=== PATIENT | female | born 1960 | race African-American/Black ===

== ENCOUNTER → 2017-03-24 | Emergency (ER) | payer MEDICARE, MEDICAID ==
[~2017-03-24] VITALS: Ht 154.9 cm; Wt 54.4 kg
[~2017-03-24] MED LIST: IBUPROFEN600 MG ORAL; MEDICAL MARIJUANA PO; NORCO 5-325 TA1 EAC1 ORAL; Norco 5mg/325mg tab ORAL ONE; TRAMADOL HCL50 MG PO; VICODIN ES 7.51 EAC1 PO
[2017-03-24 17:23] VITALS: BP 116/79
[2017-03-24 18:48] VITALS: BP 123/78
--- NOTE | 2017-03-24 22:06 | Emergency Room Report ---
History of Present Illness General Chief Complaint: Pain Present Illness [facility] The patient is a 57-year-old female with a stated history of fibromyalgia and arthritis presenting for total body pain. The patient states that she has been taking tramadol for pain prescribed by her pain management doctor but pain has been increasing over the past several days. Pain is described as a 10 out of 10 dull ache to the entire body and is worse with touch. She denies any recent injuries or any known provoking factors. She states that she has an appointment to see her doctor within the next week. She denies any other symptoms including nausea, vomiting, fever, chills, chest pain, shortness of breath Allergies: Coded Allergies: NO KNOWN ALLERGIES (Verified Allergy, Unknown, 03/24/17) Patient History Past Medical History: see triage record Pertinent Family History: none Reviewed Nursing Documentation: PMH: Agreed, PSxH: Agreed Nursing Documentation-PMH Hx Cardiac Problems: No - HEP C Hx Cancer: No Hx Gastrointestinal Problems: No Hx Neurological Problems: No - fybromyalgia Review of Systems All Other Systems: negative except mentioned in HPI Physical Exam Vital Signs Date Time Temp Pulse Resp B/P Pulse Ox O2 Delivery O2 Flow Rate FiO2 03/24/17 17:23 97.7 97 18 116/79 98 Room Air Sp02 EP Interpretation: reviewed, normal General Appearance: no apparent distress, alert, GCS 15, non-toxic Head: normocephalic, atraumatic Eyes: bilateral eye PERRL, bilateral eye normal inspection ENT: hearing grossly normal, normal pharynx, no angioedema, normal voice Neck: full range of motion, supple/symm/no masses Respiratory: chest non-tender, lungs clear, normal breath sounds, speaking full sentences Cardiovascular #1: regular rate, rhythm, no edema Gastrointestinal: normal bowel sounds, non tender, soft, non-distended, no guarding, no rebound Musculoskeletal: back normal, digits/nails normal, gait/station normal, normal range of motion Neurologic: alert, oriented x3, responsive, motor strength/tone normal, sensory intact, speech normal Psychiatric: judgement/insight normal, memory normal, mood/affect normal, no suicidal/homicidal ideation Skin: normal color, no rash, warm/dry, well hydrated Lymphatic: no adenopathy Medical Decision Making PA Attestation Dr. Carrillo is my supervising physician. Patient management was discussed with my supervising physician Diagnostic Impression: Primary Impression: Fibromyalgia ER Course The patient is a 57-year-old female with a stated history of fibromyalgia and arthritis presenting for total body pain. Differential diagnoses considered but not limited to: Fibromyalgia, arthritis, contusion, fracture, sprain, drug-seeking behavior Physical exam: Afebrile. No apparent distress Exam is unremarkable except for diffuse tenderness with soft palpation The patient is given pain medication in the ER and feels better Cures report agrees with patient's history of using tramadol. She is informed that she will need to followup with her pain management doctor for long-term care. ER precautions are given Last Vital Signs Date Time Temp Pulse Resp B/P Pulse Ox O2 Delivery O2 Flow Rate FiO2 03/24/17 18:47 97.7 03/24/17 17:23 18 116/79 98 Room Air 03/24/17 17:23 97 Status: improved Disposition: HOME, SELF-CARE Condition: Improved Scripts Hydrocodone Bit/Acetaminophen 5-325* (NORCO 5-325 TABLET*) 1 Each Tablet 1 TAB ORAL Q6HR Y for For Pain, #10 TAB Prov: VICKY IBRAHIM 03/24/17 Ibuprofen* (MOTRIN*) 600 Mg Tablet 600 MG ORAL Q8H Y for For Pain, #30 TAB 0 Refills Prov: VICKY IBRAHIM 03/24/17 Referrals: NON PHYSICIAN (PCP) Patient Instructions: Pain Medicine Instructions Additional Instructions: I discussed my findings with the patient. All questions and concerns have been answered. Treatment and medication compliance have been addressed. I advised the patient that they need to follow up with PMD in 3-5 days. Return to ED if symptoms worsen, new symptoms arise, or if needed for any reason. Patient verbalized understanding of discharge instructions. Patient needs to see pain management as soon as possible VICKY IBRAHIM March 24, 2017 22:06
== END | disposition home or self-care (01) ==
LOC: EMR 18:03
DX: M79.7 Fibromyalgia (principal); M19.90 Unspecified osteoarthritis, unspecified site
CPT/HCPCS: 99284

== ENCOUNTER 2017-04-10 14:36 | Emergency (ER) | payer MEDICARE, MEDICAID ==
[~2017-04-10] VITALS: Ht 154.9 cm; Wt 54.4 kg
[~2017-04-10 14:36] MED LIST changes: -Norco 5mg/325mg tab ORAL ONE
[2017-04-10] MEDS ORDERED: Tylenol #3 tab (300mg/30mg) ORAL ONE (15:00)
[2017-04-10] MEDS ORDERED: Cephalexin 500mg cap ORAL ONE (15:00)
--- NOTE | 2017-04-10 15:07 | Emergency Room Report ---
History of Present Illness General Chief Complaint: Upper Extremity Injury Source: Patient Present Illness HPI 57YOF walk-in with 1) pain to right shoulder s/p accidental trip and fall. Tried to reach out and grab railing with left hand, direct impact of right shoulder on ground. Unable to raise right arm above horizon since. Denies previous right shoulder fx, dislocation. Denies pain to right elbow, forearm, wrist, hand. 2) Left foream pain, swelling s/p "bug bite" yesterday. Denies fever/chills, pus drainage. Allergies: Coded Allergies: NO KNOWN ALLERGIES (Verified Allergy, Unknown, 03/24/17) Patient History Past Medical History: other - fibromyalgia Past Surgical History: none Pertinent Family History: none Social History: Reports: smoking Last Menstrual Period: na Now: No Immunizations: UTD Reviewed Nursing Documentation: PMH: Agreed, PSxH: Agreed Nursing Documentation-PMH Past Medical History: No History, Except For Hx Cardiac Problems: No - HEP C Hx Cancer: No Hx Gastrointestinal Problems: No Hx Neurological Problems: No - fybromyalgia Review of Systems All Other Systems: negative except mentioned in HPI Physical Exam Vital Signs Date Time Temp Pulse Resp B/P Pulse Ox O2 Delivery O2 Flow Rate FiO2 04/10/17 14:43 98.2 89 18 102/62 98 Room Air Sp02 EP Interpretation: reviewed, normal General Appearance: normal inspection, well appearing, no apparent distress, alert, GCS 15, non-toxic Head: normocephalic, atraumatic Eyes: bilateral eye EOMI, bilateral eye PERRL ENT: normal ENT inspection, hearing grossly normal, normal voice Neck: normal inspection, full range of motion, supple, no bony tend Respiratory: normal inspection, lungs clear, normal breath sounds, no rhonchi, no respiratory distress, no retraction, no accessory muscle use, no wheezing Cardiovascular #1: regular rate, rhythm, no edema Gastrointestinal: normal inspection, normal bowel sounds, non tender, soft, no guarding, no hernia Genitourinary: no CVA tenderness Musculoskeletal: back normal, other - Right shoulder: No obvious trauma, deformity. Normal rounded contour. mild focal ttp to deltoid. No clavicle deformity. Non tender distal right extremity. 2++ distal rad pulse. left foream with swelling, erythema, puritis. No abscess. 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 Initial Keflex given in ED. Afebrile. Localized reaction. No systemic signs, symptoms. Rx Keflex, first dose given in ED. 2) Right shoulder contusion. No fx, dislocation. Dc with Rx analgesia. Sling provided. Other X-Ray Diagnostic Results Other X-Ray Diagnostic Results : X-Ray Ordered: right shoulder EP Interpretation: Yes Findings: no fractures, no dislocation, no soft tissue swelling Number of Views: 3 Last Vital Signs Date Time Temp Pulse Resp B/P Pulse Ox O2 Delivery O2 Flow Rate FiO2 04/10/17 14:43 98.2 89 18 102/62 98 Room Air Status: improved Disposition: HOME, SELF-CARE RAYRAY QUEEN M.D. April 10, 2017 15:07
[2017-04-10 15:14] VITALS: BP 102/62
[2017-04-10] MEDS ORDERED: KEFLEX500 MG ORAL (15:31)
[2017-04-10] MEDS ORDERED: Bacitracin Oint UD TOPIC ONE (15:43)
[2017-04-10 15:54] VITALS: BP 106/63
--- NOTE | 2017-04-11 10:31 | Diagnostic Imaging Report ---
Indication: Pain Findings: 3 views of the right shoulder were obtained. Alignment of the right shoulder is normal. No acute fracture is identified. Soft tissues are unremarkable. Bones are slightly osteopenic. Impression: No acute findings
== END 2017-04-10 15:54 | disposition home or self-care (01) ==
LOC: EMR 15:05
DX: S40.011A Contusion of right shoulder, initial encounter (principal); L03.114 Cellulitis of left upper limb; F17.200 Nicotine dependence, unspecified, uncomplicated; W01.0XXA Fall on same level from slipping, tripping and stumbling without subsequent striking against object, initial encounter; Y93.9 Activity, unspecified; Y92.9 Unspecified place or not applicable; Z86.19 Personal history of other infectious and parasitic diseases; M79.7 Fibromyalgia
CPT/HCPCS: 29240; 99283

== ENCOUNTER 2017-11-02 15:21 | Emergency (ER) | payer MEDICARE, MEDICAID ==
[~2017-11-02] VITALS: Ht 154.9 cm; Wt 52.2 kg
[~2017-11-02 15:21] MED LIST changes: +KEFLEX500 MG ORAL
--- NOTE | 2017-11-02 16:48 | Emergency Room Report ---
History of Present Illness General Chief Complaint: Pain Source: Patient Present Illness HPI 57-year-old female presents to the emergency department complaining of exacerbation under her chronic right shoulder pain after running out of pain medication. Patient reports 10 out of 10 in severity localized pain to the right shoulder. Patient reports history of tear in the right shoulder which required surgery. Patient states that she has a history of fibromyalgia as well she was assigned to a chronic pain management however she wants to get a different doctor as she was roughly diagnosed. Patient states that she is unable to followup with her orthopedic surgeon until next month. She denies recent trauma or fall she denies erythema, fevers, chills or increased temperature palpation. Patient states that she is usually prescribed oxycodone or her pain. Denies numbness tingling or loss of sensation or gross motor movements of the extremities, incontinence of bowel or bladder. Denies CP, Palpitations, LOC, AMS, dizziness, Changes in Vision, Sensation, paresthesias, or a sudden severe headache. Allergies: Coded Allergies: NO KNOWN ALLERGIES (Verified Allergy, Unknown, 03/24/17) Patient History Past Medical History: see triage record Past Surgical History: none Pertinent Family History: none Last Menstrual Period: menopause Now: No Reviewed Nursing Documentation: PMH: Agreed, PSxH: Agreed Nursing Documentation-PMH Past Medical History: No History, Except For Hx Cardiac Problems: No - HEP C, right shoulder sugery in Sep 2017 Hx Hypertension: No Hx Pacemaker: No Hx Asthma: No Hx COPD: No Hx Diabetes: No Hx Cancer: No Hx Gastrointestinal Problems: No Hx Dialysis: No History Of Psychiatric Problem: No Hx Cerebrovascular Accident: No Hx Seizures: No Review of Systems All Other Systems: negative except mentioned in HPI Physical Exam Vital Signs Date Time Temp Pulse Resp B/P (MAP) Pulse Ox O2 Delivery O2 Flow Rate FiO2 11/02/17 15:45 98.4 70 16 126/72 98 Room Air Sp02 EP Interpretation: reviewed, normal General Appearance: no apparent distress, alert, GCS 15, non-toxic Head: normocephalic, atraumatic Eyes: bilateral eye normal inspection, bilateral eye PERRL ENT: hearing grossly normal, normal voice Neck: full range of motion Respiratory: lungs clear, normal breath sounds, speaking full sentences Cardiovascular #1: regular rate, rhythm, normal capillary refill Musculoskeletal: back normal, gait/station normal, normal range of motion, tender - TTP to the anteriolateral right shoulder ROM exacerbated pain, no clicking palpated, no obvious deformity noted, no erythema or increased temperature to palpation. Neurologic: alert, oriented x3, responsive, motor strength/tone normal, sensory intact, speech normal Skin: normal color, no rash, warm/dry, well hydrated Medical Decision Making PA Attestation Dr. hernandez is my supervising Physician whom patient management has been discussed with. Diagnostic Impression: Primary Impression: Shoulder pain, right Qualified Codes: M25.511 - Pain in right shoulder; G89.29 - Other chronic pain Additional Impression: Fibromyalgia ER Course 57-year-old female presents to the emergency department complaining of exacerbation under her chronic right shoulder pain after running out of pain medication. Patient reports 10 out of 10 in severity localized pain to the right shoulder. Patient reports history of tear in the right shoulder which required surgery. Patient states that she has a history of fibromyalgia as well she was assigned to a chronic pain management however she wants to get a different doctor as she was roughly diagnosed. Patient states that she is unable to followup with her orthopedic surgeon until next month. She denies recent trauma or fall she denies erythema, fevers, chills or increased temperature palpation. Patient states that she is usually prescribed oxycodone or her pain. Denies numbness tingling or loss of sensation or gross motor movements of the extremities, incontinence of bowel or bladder. Denies CP, Palpitations, LOC, AMS, dizziness, Changes in Vision, Sensation, paresthesias, or a sudden severe headache. Ddx considered but are not limited to Fracture, dislocation, contusion, rotator cuff injury Sprain/Strain/Spasm, exacerbation of chronic pain, medication non-compliance, follow up instruction non-compliance Vital signs: are WNL, pt. is afebrile H&PE are most consistent with acute exacerbation of chronic pain with no acute injury, no evidence of infection. ORDERS: - imaging is not indicated at this time as there is no acute trauma ED INTERVENTIONS: - [place] PO - Discussed with this patient that do not identify an acute emergent condition at this time and that for further pain management she needs to followup with either a primary care provider, her instrument repair specialist, or her chronic pain management Discussed with this patient that her hospital policy we do not refill narcotics pain medications. The discussed with patient that I will give her prescription for conservative treatment and some Lidoderm patches with the expectation to reduce some of her pain but I cannot guarantee that all of her pain will addressed until she is properly managed by her provider. DISCHARGE: At this time pt. is stable for d/c to home. Will provide printed patient care instructions, and any necessary prescriptions. Care plan and follow up instructions have been discussed with the patient prior to discharge. Last Vital Signs Date Time Temp Pulse Resp B/P (MAP) Pulse Ox O2 Delivery O2 Flow Rate FiO2 11/02/17 15:45 98.4 70 16 126/72 98 Room Air Disposition: HOME, SELF-CARE Condition: Stable Scripts Lidocaine (Lidoderm) 1 Each Adh..patch 1 PATCH TOPIC DAILY, #25 PATCH 0 Refills Patch(es) may remain in place for up to 12 hours in any 24-hour period. Prov: Ashlee Altman 11/02/17 Ibuprofen* (MOTRIN*) 600 Mg Tablet 600 MG ORAL THREE TIMES A DAY, #30 TAB 0 Refills Prov: Ashlee Altman 11/02/17 Referrals: NON PHYSICIAN (PCP) Patient Instructions: Chronic Pain Additional Instructions: Take medications as directed. Follow up with a Primary Care Provider in 3-5 days,For Referral to Chronic Pain Management also contact your Diplomatic Officer to notify him that you pain is not being properly managed. Return sooner to ED if new symptoms occur, or current symptoms become worse. - Please note that this Emergency Department Report was dictated using Seelioenvironmental scientists technology software, occasionally this can lead to erroneous entry secondary to interpretation by the dictation equipment. Ashlee Altman Nov 02, 2017 16:48
[2017-11-02] MEDS ORDERED: IBUPROFEN600 MG ORAL (16:50)
[2017-11-02] MEDS ORDERED: LIDODERM700 M1 TOPIC (16:50)
[2017-11-02] MEDS ORDERED: Norco 7.5mg/325mg tab ORAL ONE (17:00)
[2017-11-02 17:11] VITALS: BP 111/70
== END 2017-11-02 17:11 | disposition home or self-care (01) ==
LOC: EMR 16:35
DX: M25.511 Pain in right shoulder (principal); M79.7 Fibromyalgia
CPT/HCPCS: 99283

== ENCOUNTER 2018-06-24 19:43 | Emergency (ER) | payer MEDICARE, MEDICAID ==
[~2018-06-24] VITALS: Ht 154.9 cm; Wt 52.6 kg
[~2018-06-24 19:43] MED LIST changes: +LIDODERM700 M1 TOPIC
[2018-06-24 19:56] VITALS: BP 108/71
--- NOTE | 2018-06-24 20:27 | Emergency Room Report ---
History of Present Illness General Chief Complaint: General Complaint Present Illness HPI 58-year-old female presents to the emergency department complaining of 10 out of 10 in severity pain to the posterior and medial right thigh since Tuesday. Patient was instructed by her doctor to rule out blood clot in the emergency department. Patient reports multiple visible veins as well. Patient states that she had meniscal repair surgery done in the right knee several months ago in March. Patient denies taking estrogen and she does report to smoking cigarettes daily. No previous history of blood clots Patient denies trauma, fall or recent travel. Denies CP, SOB, Palpitations, LOC, AMS, dizziness, Changes in Vision, Sensation, paresthesias, or a sudden severe headache. Hx of fibromyalgia. (Ashlee Altman) Allergies: Coded Allergies: NO KNOWN ALLERGIES (Verified Allergy, Unknown, 03/24/17) Patient History Past Medical History: see triage record Past Surgical History: none Pertinent Family History: none Social History: Reports: smoking - daily Now: No Reviewed Nursing Documentation: PMH: Agreed; PSxH: Agreed (Ashlee Altman) Nursing Documentation-PMH Hx Cardiac Problems: No - HEP C, right shoulder sugery in Sep 2017 Hx Hypertension: No Hx Pacemaker: No Hx Asthma: No Hx COPD: No Hx Diabetes: No Hx Cancer: No Hx Gastrointestinal Problems: No Hx Dialysis: No Hx Cerebrovascular Accident: No Hx Seizures: No (Ashlee Altman) Review of Systems All Other Systems: negative except mentioned in HPI (Ashlee Altman) Physical Exam Vital Signs Date Time Temp Pulse Resp B/P (MAP) Pulse Ox O2 Delivery O2 Flow Rate FiO2 06/24/18 19:46 98.2 72 16 108/71 95 Room Air 98.2 Sp02 EP Interpretation: reviewed, normal General Appearance: no apparent distress, alert, GCS 15, non-toxic Head: normocephalic, atraumatic Eyes: bilateral eye normal inspection, bilateral eye PERRL ENT: hearing grossly normal, normal voice Respiratory: lungs clear, normal breath sounds, speaking full sentences Cardiovascular #1: regular rate, rhythm, no edema, normal capillary refill Cardiovascular #2: 2+ dorsalis pedis (R), 2+ dorsalis pedis (L) Musculoskeletal: back normal, gait/station normal, normal range of motion, tender - mild TTP to deep palpation to the right inner thigh, moderate amount of superficial spider veins bilaterally, no calf tenderness. Neurologic: alert, oriented x3, responsive, motor strength/tone normal, sensory intact, normal gait, speech normal, grossly normal Psychiatric: judgement/insight normal Skin: normal color, no rash, warm/dry, well hydrated, other (Ashlee Altman) Medical Decision Making PA Attestation Dr. Brantd is my supervising Physician whom patient management has been discussed with. (Ashlee Altman) Diagnostic Impression: Primary Impression: Myalgia ER Course 58-year-old female presents to the emergency department complaining of 10 out of 10 in severity pain to the posterior and medial right thigh since Tuesday. Patient was instructed by her doctor to rule out blood clot in the emergency department. Patient reports multiple visible veins as well. Patient states that she had meniscal repair surgery done in the right knee several months ago in March. Patient denies taking estrogen and she does report to smoking cigarettes daily. No previous history of blood clots Patient denies trauma, fall or recent travel. Denies CP, SOB, Palpitations, LOC, AMS, dizziness, Changes in Vision, Sensation, paresthesias, or a sudden severe headache. Hx of fibromyalgia. Ddx considered but are not limited to Cellulitis, DVT, varicose vein, PAD, Venous insufficiency Vital signs: are WNL, pt. is afebrile H&PE are most consistent with myalgia, clinically I do not suspect DVT even though pt. had knee surgery in march and is a daily smoker. Pt. has no swelling, no erythema, ORDERS: RLE duplex U/s to R/O DVT:Negative ED INTERVENTIONS: -[place] PO DISCHARGE: At this time pt. is stable for d/c to home. Will provide printed patient care instructions, and any necessary prescriptions. Care plan and follow up instructions have been discussed with the patient prior to discharge. (Ashlee Altman) ER Course I also evaluated patient. I had low suspicion for DVT, negative US. I suspect mild muscle strain (HAYES BRANDT) CT/MRI/US Diagnostic Results CT/MRI/US Diagnostic Results : Imaging Test Ordered: RIGHT LOWER EXTREMITY UNILATERAL US Impression negative for DVT. (Ashlee Altman) Last Vital Signs Date Time Temp Pulse Resp B/P (MAP) Pulse Ox O2 Delivery O2 Flow Rate FiO2 06/24/18 19:56 98.2 16 108/71 95 Room Air 98.2 06/24/18 19:46 72 (Ashlee Altman) Disposition: HOME, SELF-CARE Condition: Stable Scripts Ibuprofen* (MOTRIN*) 600 Mg Tablet 600 MG ORAL THREE TIMES A DAY, #20 TAB 0 Refills Prov: Ashlee Altman 06/24/18 Patient Instructions: Muscle Pain, Adult Additional Instructions: Take medications as directed. Follow up with a Primary Care Provider in 3-5 days, even if your symptoms have resolved. --Please review list of primary care clinics, if you do not already have a primary care provider Return sooner to ED if new symptoms occur, or current symptoms become worse. - Please note that this Emergency Department Report was dictated using [employer]ngoinstruction librarian technology software, occasionally this can lead to erroneous entry secondary to interpretation by the dictation equipment. Ashlee Altman Jun 24, 2018 20:27 HAYES BRANDT Jun 24, 2018 21:52
[2018-06-24] MEDS ORDERED: IBUPROFEN600 MG ORAL (21:10)
[2018-06-24] MEDS ORDERED: Norco 5mg/325mg tab ORAL ONE (21:15)
[2018-06-24 21:45] VITALS: BP 110/77
--- NOTE | 2018-06-28 23:39 | Diagnostic Imaging Report ---
APPROVED REPORT CPT Code: 18702 Present Symptoms Lower Extremity Pain: Right RIGHT LEG: Venous imaging reveals a patent deep venous system. There is no evidence of thrombus within the femoral, popliteal or tibial segments. The greater saphenous vein is also within normal limits. Doppler indicates normal spontaneous flow within these segments.
== END 2018-06-24 21:30 | disposition home or self-care (01) ==
LOC: EMR 20:25
DX: M79.661 Pain in right lower leg (principal); M79.1 Myalgia; F17.210 Nicotine dependence, cigarettes, uncomplicated; Z86.19 Personal history of other infectious and parasitic diseases
CPT/HCPCS: 93971; 99284